=== PATIENT | male | born 1985 | race Two or more races ===

== ENCOUNTER 2020-03-15 06:55 | Day surgery (SDC) | payer OTHER | END 2020-03-15 13:59 | disposition home or self-care (01) | LOC: CIR.AMB 06:55 | DX: S62.347A Nondisplaced fracture of base of fifth metacarpal bone, left hand, initial encounter for closed fracture (principal); S66.324A Laceration of extensor muscle, fascia and tendon of right ring finger at wrist and hand level, initial encounter; S63.054A Dislocation of other carpometacarpal joint of right hand, initial encounter ==